=== PATIENT | female | born 1990 | race Caucasian/White ===

== ENCOUNTER 2016-12-13 00:30 | Inpatient (IN) | payer OTHER ==
[~2016-12-13] VITALS: Ht 154.9 cm; Wt 62.1 kg
[2016-12-13] MEDS ORDERED: OXYTOCIN 20 UNITS/LR PREMIX 1,000 ML IV SCH (01:15)
[2016-12-13] MEDS ORDERED: NALBUPHINE HYDROCHLORIDE 10 MG/ML VIAL IVP PRN (01:15)
[2016-12-13] MEDS ORDERED: PROMETHAZINE 25 MG/ML VIAL IVP PRN (01:15)
[2016-12-13] MEDS ORDERED: MISOPROSTOL 25 MCG TAB VG PRN (01:15)
[2016-12-13] MEDS ORDERED: OXYTOCIN 10 UNITS/ML VIAL IM ONE (01:15)
[2016-12-13] MEDS: LACTATED RINGERS 1,000 ML IV SCH ×2 (01:45→09:00)
[2016-12-13 02:03] LABS: APPEARANCE,URINE CLEAR (CLEAR); BILIRUBIN,URINE NEGATIVE (NEGATIVE); BLOOD, URINE NEGATIVE (NEGATIVE); COLOR,URINE YELLOW (YELLOW); LEUKOCYTE ESTERASE ,URINE 1+ (NEGATIVE); NITRITE, URINE NEGATIVE (NEGATIVE); PH,URINE 6.5 (5.0-9.0); PROTEIN,URINE NEGATIVE (NEGATIVE); UGLUCOSE NEGATIVE (NEGATIVE); UROBILINOGEN,URINE 0.2 EU/dL (0.2 - 1)
[2016-12-13 02:13] LABS: BASOPHILS # (AUTO) 0.1 K/uL (0.00-0.22); BASOPHILS % (AUTO) 1.2 % (0.0-2.0); EOSINOPHILS # (AUTO) 0.1 K/uL (0-0.4); EOSINOPHILS % (AUTO) 1.2 % (0.0-4.0); HEMATOCRIT 34.9 % (36-48); LYMPHOCYTES % (AUTO) 27.5 % (20.5-51.1); MEAN CORPUSCULAR HEMOGLOBIN 27 pg (27-31); MEAN CORPUSCULAR HGB CONC 31 g/dL (33-37); MEAN CORPUSCULAR VOLUME 85 fL (80-94); MONOCYTES # (AUTO) 0.6 K/uL (0.8-1.0); MONOCYTES % (AUTO) 8.9 % (1.7-9.3); NEUTROPHILS # (AUTO) 4.5 K/uL (1.8-7.7); NEUTROPHILS % (AUTO) 61.2 % (42.2-75.2); PLATELET COUNT (AUTO) 170 K/uL (140-450); RED BLOOD CELL COUNT(AUTO) 4.12 MIL/uL (4.20-5.40); RED CELL DISTRIBUTION WIDTH 15.4 % (11.6-13.7); WHITE BLOOD COUNT (AUTO) 7.3 K/uL (4.8-10.8)
[2016-12-13 03:20] LABS: BACTERIA,URINE 4+ /HPF (None Seen); RBC,URINE 0-5 (RARE) /HPF (0-5)
[2016-12-13] MEDS ORDERED: OXYTOCIN 20 UNITS/LR PREMIX 1,000 ML IV ONE (04:38)
[2016-12-13 05:33] VITALS: BP 113/72
[2016-12-13] MEDS ORDERED: FERR325E14 PO (05:36)
--- NOTE | 2016-12-13 08:38 | NUR ---
PATIENT HAS BEEN SCREENED AND CATEGORIZED LOW NUTRITION RISK. PATIENT WILL BE SEEN WITHIN 7 DAYS OF ADMISSION. 12/19/[address]
[2016-12-13] MEDS ORDERED: ROPIVACAINE 0.2%/NS PREMIX 250 ML EPI ONE (09:41)
[2016-12-13] MEDS ORDERED: ROPIVACAINE 0.2%/NS PREMIX 250 ML EPI SCH (10:10)
[2016-12-13] MEDS ORDERED: OXYTOCIN 10 UNITS/ML VIAL ONE (12:13)
[2016-12-13] MEDS ORDERED: BENZOCAINE/MENTHOL 20%-0.5% 60 GM CAN TP PRN (12:55)
[2016-12-13] MEDS ORDERED: MEASLES, MUMPS, AND RUBELLA 1 VIAL SQVAC PRN (12:55)
[2016-12-13] MEDS ORDERED: METHYLERGONOVINE 0.2 MG/ML AMP IM PRN (12:55)
[2016-12-13] MEDS ORDERED: WITCH HAZEL 40 PAD PACKAGE TP PRN (12:55)
[2016-12-13] MEDS ORDERED: oxyCODONE/APAP 5/325 MG 1 TAB TAB PO PRN (12:55)
[2016-12-13] MEDS ORDERED: TEMAZEPAM 15 MG CAP PO PRN (12:55)
[2016-12-13] MEDS ORDERED: OXYTOCIN 10 UNITS/ML VIAL IM PRN (12:55)
[2016-12-13] MEDS: IBUPROFEN 800 MG TAB PO PRN ×2 (17:34→23:12)
[2016-12-13] MEDS ORDERED: DOCUSATE SOD/SENNA 50/8.6 MG 1 TAB PO SCH (21:00)
[2016-12-14] MEDS: IBUPROFEN 800 MG TAB PO PRN (06:43)
[2016-12-14 07:54] LABS: HEMATOCRIT 35.3 % (36-48); HEMOGLOBIN 11.3 g/dL (12.0-16.0)
[2016-12-14] MEDS: HYDROcodone/APAP 5/325 MG 1 TAB TAB PO PRN (21:19)
[2016-12-15] MEDS: HYDROcodone/APAP 5/325 MG 1 TAB TAB PO PRN (06:04)
[2016-12-15] MEDS ORDERED: IBUP-2213 PO (09:27)
== END 2016-12-15 11:45 | disposition home or self-care (01) | DRG 560 ==
LOC: MFCC 00:30
PROVIDERS: ADMIT Obstetrics & Gynecology; ATTEND Obstetrics & Gynecology
PROC: 10E0XZZ Delivery of Products of Conception, External Approach (ICD-10-PCS; principal; 2016-12-13)
PROC: 10907ZC Drainage of Amniotic Fluid, Therapeutic from Products of Conception, Via Natural or Artificial Opening (ICD-10-PCS; 2016-12-13)
PROC: 00HU33Z Insertion of Infusion Device into Spinal Canal, Percutaneous Approach (ICD-10-PCS; 2016-12-13)
PROC: 3E0S3CZ (ICD-10-PCS; 2016-12-13)
PROC: 3E0234Z Introduction of Serum, Toxoid and Vaccine into Muscle, Percutaneous Approach (ICD-10-PCS; 2016-12-13)
DX: O80 Encounter for full-term uncomplicated delivery (principal); Z23 Encounter for immunization; Z3A.39 39 weeks gestation of pregnancy; Z37.0 Single live birth; Z80.3 Family history of malignant neoplasm of breast; Z83.3 Family history of diabetes mellitus; Z80.8 Family history of malignant neoplasm of other organs or systems; Z83.6 Family history of other diseases of the respiratory system; Z82.49 Family history of ischemic heart disease and other diseases of the circulatory system; Z83.49 Family history of other endocrine, nutritional and metabolic diseases; Z83.2 Family history of diseases of the blood and blood-forming organs and certain disorders involving the immune mechanism; Z81.3 Family history of other psychoactive substance abuse and dependence; Z81.1 Family history of alcohol abuse and dependence
CPT/HCPCS: 36415; 51702; 59409; 81001; 85018; 85025; 86592; 86886; 86900; 86901; 87086; 90715; J2590; J2795; J7120